=== PATIENT | female | born 1940 | race African-American/Black ===

== ENCOUNTER → 2016-11-06 | Outpatient (CLI) | payer OTHER | LOC: RAD 14:47 | DX: R05 Cough (principal) ==

== ENCOUNTER 2016-11-16 21:43 | Emergency (ER) | payer OTHER ==
[~2016-11-16] VITALS: Ht 160 cm; Wt 73.0 kg
[2016-11-16] MEDS ORDERED: PROTONIX40 M1 PO (22:23)
[2016-11-16] MEDS ORDERED: PREDNISONE 20 M20 MG PO (22:30)
[2016-11-16] MEDS ORDERED: ZYRTEC10 M2 PO (22:30)
[2016-11-16] MEDS ORDERED: ZANTAC 150MG T150 MG PO (22:30)
[2016-11-16 22:56] VITALS: BP 164/65
== END 2016-11-16 22:57 | disposition home or self-care (01) ==
LOC: ER 21:43
DX: L50.9 Urticaria, unspecified (principal); Z90.49 Acquired absence of other specified parts of digestive tract; Z90.710 Acquired absence of both cervix and uterus; Z88.1 Allergy status to other antibiotic agents

== ENCOUNTER → 2018-01-13 | Outpatient (CLI) | payer OTHER ==
[~2018-01-13] MED LIST: PREDNISONE 20 M20 MG PO; PROTONIX40 M1 PO; ZANTAC 150MG T150 MG PO; ZYRTEC10 M2 PO
== END ==
LOC: RAD 02:34 → EDSTATUS 15:07
DX: Z12.31 Encounter for screening mammogram for malignant neoplasm of breast (principal)

== ENCOUNTER → 2018-07-09 | Outpatient (CLI) | payer OTHER ==
--- NOTE | 2018-07-09 15:30 | 2DMMODE ---
[facility] [place] [address] [place] [address] 2 D/M-MODE ECHOCARDIOGRAM Name: ELSY DRAPER Room #: REG [facility]#: [id number] ������������� Admission: 07/09/18 ������������� Attend Phys: Giselle Sagastume DNP Discharge: ��� ������������� ��� Date of : 38 Date of Service: 07/09/18 1529 �� Report #: [id number] �������� ��������������������������������������������[id number] THIS REPORT FOR: //name// APPROVED REPORT Study performed: 07/09/2018 14:15:59 EXAM: Comprehensive 2D, Doppler, and color-flow Echocardiogram Patient Location: Out-Patient Status: routine BSA: 1.83 HR: 73 bpm BP: 142/76 mmHg Rhythm: NSR Other Information Study Quality: Adequate Indications Dyspnea 2D Dimensions RVDd: 25.20 mm IVSd: 9.48 (7-11mm) LVOT Diam: 18.76 (18-24mm) LVDd: 43.52 mm PWd: 8.54 (7-11mm) Ascending Ao: 29.95 (22-36mm) LVDs: 29.52 (25-40mm) Aortic Root: 30.43 mm Volumes Left Atrial Volume (Systole) Single Plane 4CH: 24.79 mL Single Plane 2CH: 23.96 mL LA ESV Index: 14.00 mL/m2 Aortic Valve AoV Peak You.: 1.59 m/s AO Peak Gr.: 10.14 mmHg LVOT Max P.18 mmHg LVOT Max V: 1.24 m/s BRII Vmax: 2.16 cm2 Mitral Valve E/A Ratio: 0.6 MV Decel. Time: 220.82 ms MV E Max You.: 0.65 m/s [facility] [address] [place] [address] 2 D/M-MODE ECHOCARDIOGRAM Name: ELSY DRAPER Room #: REG [facility]#: [id number] ������������� Admission: 07/09/18 ������������� Attend Phys: Giselle Sagastume DNP Discharge: ��� ������������� ��� Date of : 38 Date of Service: 07/09/18 1529 �� Report #: [id number] �������� ��������������������������������������������[id number] MV A You.: 1.01 m/s MV PHT: 64.04 ms IVRT: 86.51 ms Pulmonary Valve PV Peak You.: 0.91 m/s PV Peak Gr.: 3.33 mmHg Pulmonary Vein P Vein S: 0.57 m/s P Vein D: 0.35 m/s P Vein S/D Ratio: 1.63 Tricuspid Valve TR Peak You.: 2.31 m/s RAP Estimate: 5.00 mmHg TR Peak Gr.: 21.31 mmHg PA Pressure: 26.00 mmHg Left Ventricle The left ventricle is normal size. There is normal LV segmental wall motion. Mild concentric left ventricular hypertrophy. Left ventricular systolic function is normal. LVEF is 60-65%. Mild diastolic dysfunction is present (impaired relaxation pattern). Right Ventricle The right ventricle is normal size. The right ventricular systolic function is normal. Atria The left atrium size is normal. The right atrium size is normal. Aortic Valve Aortic valve is trileaflet. No aortic regurgitation is present. There is no aortic valvular stenosis. Mitral Valve The mitral valve is normal in structure. Trace to mild mitral regurgitation. Tricuspid Valve The tricuspid valve is normal in structure. Mild tricuspid regurgitation. Estimated PAP is 25-30mmHg. Pulmonic Valve The pulmonary valve is normal in structure. Trace pulmonic [facility] [place] [address] [place] [address] 2 D/M-MODE ECHOCARDIOGRAM Name: ELSY DRAPER Room #: REG [facility]#: [id number] ������������� Admission: 07/09/18 ������������� Attend Phys: Giselle Sagastume DNP Discharge: ��� ������������� ��� Date of : 38 Date of Service: 07/09/18 1529 �� Report #: [id number] �������� ��������������������������������������������[id number] regurgitation. Great Vessels The aortic root is normal in size. The ascending aorta is normal in size. IVC is normal in size and collapses >50% with inspiration. Pericardium There is no pericardial effusion. <Conclusion> Left ventricular systolic function is normal. There is normal LV segmental wall motion. LVEF is 60-65%. Mild diastolic dysfunction Aortic valve is trileaflet. No aortic regurgitation or stenosis The mitral valve is normal in structure. Trace to mild mitral regurgitation. Mild tricuspid regurgitation. Estimated pulmonary artery pressure of 25-30mmHg. There is no pericardial effusion. ��������������������������������������������� <ELECTRONICALLY SIGNED> ���������������������������������������� By: Nick Nunez MD, [facility] ��������������������������������������������� 07/09/18 1529 1529 1529 Nick Nunez MD, [facility] /INF
== END ==
LOC: CV 10:41
DX: I08.1 Rheumatic disorders of both mitral and tricuspid valves (principal); Z88.1 Allergy status to other antibiotic agents